=== PATIENT | female | born 1945 | race American Indian/Alaskan Native ===

== ENCOUNTER 2020-03-07 17:47 | Observation (INO) | payer OTHER ==
[2020-03-08 03:11] LABS: Basophils # (Auto) 0.2 K/mm3 (0.0-0.1); Basophils % (Auto) 2.5 % (0.0-1.8); Eosinophils % (Auto) 0.5 % (0.0-4.3); Hematocrit 21.3 % (30.3-42.9); Hemoglobin 6.6 gm/dl (10.1-14.3); Lymphocytes # (Auto) 0.6 K/mm3 (1.2-5.4); Lymphocytes % (Auto) 7.6 % (13.4-35.0); Mean Corpuscular HGB Conc 31 % (30-34); Monocytes # (Auto) 0.9 K/mm3 (0.0-0.8); Monocytes % (Auto) 12.1 % (0.0-7.3); Platelet Count 562 K/mm3 (140-440); Red Blood Count 3.18 M/mm3 (3.65-5.03); Red Cell Distribution Width 19.7 % (13.2-15.2)
[2020-03-08 03:14] LABS: Mean Corpuscular Volume 67 fl (79-97)
[2020-03-08 03:26] LABS: Alanine Aminotransferase 6 units/L (7-56); Albumin 3.3 g/dL (3.9-5); BUN/Creatinine Ratio 38; Blood Urea Nitrogen 30 mg/dL (7-17); Hemolysis Index 0
[2020-03-08 03:39] LABS: Bacteria,Urine 1+ /HPF (Negative); Bilirubin,Urine NEG (Negative); Blood,Urine NEG (Negative); Calcium Oxalate Crystals,Urine 3+; Color,Urine Yellow (Yellow); Mucus,Urine FEW /HPF
[2020-03-08] MEDS ORDERED: SODIUM CHLORIDE 0.9% 500 ML 500 ML IV ONE ×2 (04:46→06:27)
--- NOTE | 2020-03-08 06:12 | Cat Scan Report ---
CT chest, abdomen, and pelvis with contrast INDICATION : Severe anemia, weight loss abdominal pain anorexia. TECHNIQUE: 100 mL of intravenous contrast administered.. All CT scans at this location are performe d using CT dose reduction for ALARA by means of automated exposure control. COMPARISON: None FINDINGS: Chest: Heart and great vessels appear unremarkable. Clear lungs with no pathologic mediastinal adeno ava. No acute osseous abnormality identified. Abdomen/pelvis: Small hepatic cysts are present with trace perihepatic ascites. A couple other tiny hepatic lesions are present which are not clearly cysts on this exam. The gallbladder, spleen, pancre as, adrenals, kidneys, and proximal GI tract appear unremarkable. Urinary bladder is unremarkable with trace pelvic free fluid is a cystic mass centered over the lower uterine segment measuring approximately 7.7 cm in maximal dimension. No acute colonic abnormality. IMPRESSION: Cystic mass centered over the lower uterine segment. Recommend FORKLIFT WHEEL LOADER consult. A couple s mall low-attenuation lesions not clearly representing cysts are also noted which are worrisome for ne oplastic process. From an imaging standpoint, liver findings could be better evaluated with three-pha se CT liver and pelvic findings could be better evaluated with pelvic ultrasound. Signer Name: Casey Sommer MD Signed: 03/08/2020 6:07 AM Workstation Name: [id number]
--- NOTE | 2020-03-08 06:12 | Cat Scan Report ---
CT chest, abdomen, and pelvis with contrast INDICATION : Severe anemia, weight loss abdominal pain anorexia. TECHNIQUE: 100 mL of intravenous contrast administered.. All CT scans at this location are performe d using CT dose reduction for ALARA by means of automated exposure control. COMPARISON: None FINDINGS: Chest: Heart and great vessels appear unremarkable. Clear lungs with no pathologic mediastinal adeno ava. No acute osseous abnormality identified. Abdomen/pelvis: Small hepatic cysts are present with trace perihepatic ascites. A couple other tiny hepatic lesions are present which are not clearly cysts on this exam. The gallbladder, spleen, pancre as, adrenals, kidneys, and proximal GI tract appear unremarkable. Urinary bladder is unremarkable with trace pelvic free fluid is a cystic mass centered over the lower uterine segment measuring approximately 7.7 cm in maximal dimension. No acute colonic abnormality. IMPRESSION: Cystic mass centered over the lower uterine segment. Recommend HOMEBOUND TEACHER consult. A couple s mall low-attenuation lesions not clearly representing cysts are also noted which are worrisome for ne oplastic process. From an imaging standpoint, liver findings could be better evaluated with three-pha se CT liver and pelvic findings could be better evaluated with pelvic ultrasound. Signer Name: Casey Sommer MD Signed: 03/08/2020 6:07 AM Workstation Name: [id number]
[2020-03-08] MEDS ORDERED: PANTOPRAZOLE 40 MG INJ IV ONE (06:26)
--- NOTE | 2020-03-08 06:59 | Emergency Department Report ---
ED General Adult HPI - General Chief complaint: Recheck/Abnormal Lab/Rx Stated complaint: NOT EATING Time Seen by Provider: 03/08/20 06:22 Source: family Mode of arrival: Ambulatory Limitations: No Limitations - History of Present Illness Initial comments: This is a 74-year-old female who recently moved here from [place] with her family. They are originally from [facility]. She has not seen a doctor in many years. The family reports substantial weight loss and dyspnea on exertion. They associated that with her history of asthma. She uses a "pump" but no other prescription medicine. The patient has no active complaints at the time of my exam. She has no signs of active bleeding. -: unknown Improves with: none Worsens with: other Associated Symptoms: denies other symptoms (Dyspnea on exertion), shortness of breath, weakness - Related Data Allergies Allergy/AdvReac Type Severity Reaction Status Date / Time No Known Allergies Allergy Unverified 03/07/20 18:40 ED Review of Systems ROS: Stated complaint: NOT EATING Other details as noted in HPI Constitutional: denies: chills, fever Eyes: denies: eye pain, vision change ENT: denies: ear pain, throat pain Respiratory: shortness of breath, SOB with exertion. denies: cough, wheezing Cardiovascular: denies: chest pain, palpitations Endocrine: no symptoms reported, unexplained weight loss Gastrointestinal: denies: abdominal pain, nausea, diarrhea Genitourinary: denies: urgency, dysuria, discharge Musculoskeletal: denies: back pain, arthralgia Skin: denies: rash, lesions Neurological: denies: headache, weakness, paresthesias Psychiatric: denies: anxiety, depression Hematological/Lymphatic: denies: easy bleeding, easy bruising ED Past Medical Hx - Past Medical History Previous Medical History?: Yes Additional medical history: low iron - Surgical History Past Surgical History?: No ED Physical Exam - General Limitations: No Limitations General appearance: alert, in no apparent distress, cachectic - Head Head exam: Present: atraumatic, normocephalic - Eye Eye exam: Present: normal appearance. Absent: scleral icterus - ENT ENT exam: Present: mucous membranes moist - Neck Neck exam: Present: normal inspection - Respiratory Respiratory exam: Present: normal lung sounds bilaterally. Absent: respiratory distress - Cardiovascular Cardiovascular Exam: Present: regular rate, normal rhythm. Absent: systolic mu rmur, diastolic murmur, rubs, gallop - GI/Abdominal GI/Abdominal exam: Present: soft, normal bowel sounds. Absent: distended, tenderness, guarding, rebound - Extremities Exam Extremities exam: Present: normal inspection. Absent: calf tenderness - Back Exam Back exam: Present: normal inspection. Absent: CVA tenderness (R), CVA tenderness (L) - Neurological Exam Neurological exam: Present: alert, oriented X3 - Psychiatric Psychiatric exam: Present: normal affect, normal mood - Skin Skin exam: Present: warm, dry, intact, normal color. Absent: rash ED Course Vital Signs 03/07/20 03/07/20 03/08/20 18:40 18:41 02:06 Temperature 99.0 F 97.3 F L Pulse Rate 121 H 122 H 100 H Respiratory 18 19 Rate Blood Pressure 131/70 Blood Pressure 121/66 121/66 [Right] O2 Sat by Pulse 99 97 99 Oximetry 03/08/20 03/08/20 03/08/20 04:43 04:45 04:50 Temperature Pulse Rate 97 H 93 H Respiratory 24 16 Rate Blood Pressure 133/64 127/64 Blood Pressure [Right] O2 Sat by Pulse 98 Oximetry 03/08/20 03/08/20 03/08/20 05:00 05:15 05:43 Temperature Pulse Rate 93 H 93 H 87 Respiratory 22 27 H 15 Rate Blood Pressure 123/66 122/70 122/70 Blood Pressure [Right] O2 Sat by Pulse 100 97 Oximetry 03/08/20 03/08/20 03/08/20 05:45 06:00 06:15 Temperature Pulse Rate 86 83 81 Respiratory 22 18 20 Rate Blood Pressure 140/75 148/73 122/70 Blood Pressure [Right] O2 Sat by Pulse 97 96 Oximetry 03/08/20 03/08/20 03/08/20 07:00 07:16 07:30 Temperature Pulse Rate 85 81 81 Respiratory 19 20 18 Rate Blood Pressure 141/79 141/79 Blood Pressure [Right] O2 Sat by Pulse 96 94 Oximetry - Reevaluation(s) Reevaluation #1: Transfusion ordered. Discussed with hospitalist. Admit their service. 03/08/20 08:23 ED Medical Decision Making - Lab Data Result diagrams: 03/08/20 02:43 03/08/20 02:43 Laboratory Results - last 24 hr 03/08/20 03/08/20 03/08/20 02:43 02:43 Unknown WBC 7.5 RBC 3.18 L Hgb 6.6 L Hct 21.3 L MCV 67 L MCH 21 L MCHC 31 RDW 19.7 H Plt Count 562 H Lymph % (Auto) 7.6 L [place] % (Auto) 12.1 H Eos % (Auto) 0.5 Baso % (Auto) 2.5 H Lymph # (Auto) 0.6 L [place] # (Auto) 0.9 H Eos # (Auto) 0.0 Baso # (Auto) 0.2 H Seg Neutrophils % 77.3 H Seg Neutrophils # 5.8 Sodium 135 L Potassium 5.2 H Chloride 98.7 Carbon Dioxide 21 L Anion Gap 21 BUN 30 H Creatinine 0.8 Estimated GFR > 60 BUN/Creatinine Ratio 38 Glucose 92 Calcium 10.0 Total Bilirubin 0.50 AST 14 ALT 6 L Alkaline Phosphatase 114 Total Protein 7.2 Albumin 3.3 L Albumin/Globulin Ratio 0.8 Lipase 59 Urine Color Yellow Urine Turbidity Cloudy Urine pH 5.0 Ur Specific [place] 1.017 Urine Protein 30 mg/dl Urine Glucose (UA) Neg Urine Ketones Tr Urine Blood Neg Urine Nitrite Neg Urine Bilirubin Neg Urine Urobilinogen 4.0 Ur Leukocyte Esterase Mod Urine WBC (Auto) 6.0 Urine RBC (Auto) 6.0 U Epithel Cells (Auto) 1.0 Urine Bacteria (Auto) 1+ Calcium Oxalate Crystal 3+ Urine Mucus Few - Radiology Data Radiology results: report reviewed, image reviewed interpreted by me: 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 IMPRESSION: Cystic mass centered over the lower uterine segment. Recommend BUNDLE SHAKER consult. A couple small low-attenuation lesions not clearly representing cysts are also noted which are worrisome for neoplastic process. From an imaging standpoint, liver findings could be better evaluated with three- phase CT liver and pelvic findings could be better evaluated with pelvic ultrasound. Critical care attestation.: If time is entered above; I have spent that time in minutes in the direct care of this critically ill patient, excluding procedure time. ED Disposition Clinical Impression: Symptomatic anemia, Metastatic cancer to liver Disposition: OP ADMIT IP TO THIS HOSP Is pt being admited?: No Does the pt Need Aspirin: No Condition: Stable Referrals: PRIMARY CARE, [Primary Care Provider] - 3-5 Days Time of Disposition: 08:24
--- NOTE | 2020-03-08 09:11 | History and Physical Report ---
History of Present Illness Date of examination: 03/08/20 Date of admission: March 08, 2020 Chief complaint: Shortness of breath fatigue History of present illness: Patient 74-year-old recently moved from [place] via [facility]. Patient has not had primary care physician in quite some time is been years. Patient brought to ER by the family with a chief complaint of weight loss associated with shortness of breath, generalized malaise and dyspnea on minimal exertion. During history patient appears to be comfortable. No acute distress no concerns. Patient is a lert appropriate. Denies any bleeding any vaginal or rectal bleeding. Patient denies any sick contacts. Denies any abdominal pain denies chest pain only shortness of breath fatigue and occasional palpitation. No headache. Patient states she is not aware she has lost any weight but does notice a decrease in her appetite. Patient denies any pelvic pain denies any discharge denies any recent activity. Upon work-up in the ED patient found to be anemic at 6 and 21. Also with some dehydration as well. CT scan abdomen and pelvis were obtained and showed a cystic mass over the lower uterine segment. Malignancy versus fibroid. Also noted small cystlike lesions consistent with possible neoplastic process. Patient admitted for transfusion 2 units packed red blood cells HEALTH CARE MARKETING MANAGER work-up. Past History Past Medical History: No medical history Past Surgical History: No surgical history Social history: single, lives with family, full code Family history: no significant family history Medications and Allergies Allergies Allergy/AdvReac Type Severity Reaction Status Date / Time No Known Allergies Allergy Unverified 03/07/20 18:40 Review of Systems Constitutional: weight loss, fatigue, weakness, poor appetite, no weight gain, no fever, no chills, no sweats, no night sweats, no anorexia, no lethargy, no chronic headaches, no daytime sleepiness Ears, nose, mouth and throat: no ear pain, no tinnitis, no nose pain, no mouth pain, no pain front of neck Cardiovascular: shortness of breath, dyspnea on exertion, decreased exercise tolerance, no syncope, no lightheadedness, no high blood pressure, no leg edema Respiratory: shortness of breath, no cough with sputum, no excessive sputum, no hemoptysis, no wheezing, no pleurisy, no pain on inspiration Gastrointestinal: no vomiting, no diarrhea, no change in bowel habits, no hematochezia, no jaundice, no dyspepsia/bloating Musculoskeletal: no neck stiffness, no neck pain, no shooting arm pain, no arm numbness/tingling, no low back pain, no shooting leg pain, no leg numbness/tingling, no redness of joints, no hot joints, no morning stiffness, no muscle weakness, no muscle cramps, no atrophy, no fractures Neurological: no head injury, no parathesias, no numbness, no migraines, no tic, no loss of vision, no hearing difficulties Psychiatric: no memory loss, no sleep disturbances, no disorientation, no paranoia, no confusion Endocrine: no heat intolerance, no polydipsia, no polyuria, no thyroid mass, no recent glucocorticoid use Exam - Constitutional Vitals: Temp Pulse Resp BP Pulse Ox 97.3 F L 82 22 145/70 100 03/08/20 02:06 03/08/20 08:00 03/08/20 08:00 03/08/20 08:00 03/08/20 08:00 General appearance: Present: no acute distress, well-nourished - EENT Eyes: Present: PERRL ENT: hearing intact, clear oral mucosa, other (No jaundice only muddy sclera.) - Neck Neck: Present: supple, normal ROM - Respiratory Respiratory effort: normal, other (Pale conjunctiva) Respiratory: bilateral: CTA - Cardiovascular Heart Sounds: Present: S1 & S2. Absent: rub, click - Extremities Extremities: pulses symmetrical, No edema Peripheral Pulses: within normal limits - Abdominal General gastrointestinal: Present: soft, non-tender, non-distended, normal bowel sounds Female genitourinary: Present: normal - Integumentary Integumentary: Present: clear, warm, dry - Musculoskeletal Musculoskeletal: gait normal, strength equal bilaterally - Psychiatric Psychiatric: appropriate mood/affect, intact judgment & insight - Neurologic Neurologic: CNII-XII intact, moves all extremities Results - Labs CBC & Chem 7: 03/08/20 02:43 03/08/20 02:43 Labs: Laboratory Last Values WBC 7.5 K/mm3 (4.5-11.0) 03/08/20 02:43 RBC 3.18 M/mm3 (3.65-5.03) L 03/08/20 02:43 Hgb 6.6 gm/dl (10.1-14.3) L 03/08/20 02:43 Hct 21.3 % (30.3-42.9) L 03/08/20 02:43 MCV 67 fl (79-97) L 03/08/20 02:43 MCH 21 pg (28-32) L 03/08/20 02:43 MCHC 31 % (30-34) 03/08/20 02:43 RDW 19.7 % (13.2-15.2) H 03/08/20 02:43 Plt Count 562 K/mm3 (140-440) H 03/08/20 02:43 Lymph % (Auto) 7.6 % (13.4-35.0) L 03/08/20 02:43 Potter % (Auto) 12.1 % (0.0-7.3) H 03/08/20 02:43 Eos % (Auto) 0.5 % (0.0-4.3) 03/08/20 02:43 Baso % (Auto) 2.5 % (0.0-1.8) H 03/08/20 02:43 Lymph # (Auto) 0.6 K/mm3 (1.2-5.4) L 03/08/20 02:43 Potter # (Auto) 0.9 K/mm3 (0.0-0.8) H 03/08/20 02:43 Eos # (Auto) 0.0 K/mm3 (0.0-0.4) 03/08/20 02:43 Baso # (Auto) 0.2 K/mm3 (0.0-0.1) H 03/08/20 02:43 Seg Neutrophils % 77.3 % (40.0-70.0) H 03/08/20 02:43 Seg Neutrophils # 5.8 K/mm3 (1.8-7.7) 03/08/20 02:43 Sodium 135 mmol/L (137-145) L 03/08/20 02:43 Potassium 5.2 mmol/L (3.6-5.0) H 03/08/20 02:43 Chloride 98.7 mmol/L (98-107) 03/08/20 02:43 Carbon Dioxide 21 mmol/L (22-30) L 03/08/20 02:43 Anion Gap 21 mmol/L 03/08/20 02:43 BUN 30 mg/dL (7-17) H 03/08/20 02:43 Creatinine 0.8 mg/dL (0.6-1.2) 03/08/20 02:43 Estimated GFR > 60 ml/min 03/08/20 02:43 BUN/Creatinine Ratio 38 % 03/08/20 02:43 Glucose 92 mg/dL (65-100) 03/08/20 02:43 Calcium 10.0 mg/dL (8.4-10.2) 03/08/20 02:43 Total Bilirubin 0.50 mg/dL (0.1-1.2) 03/08/20 02:43 AST 14 units/L (5-40) 03/08/20 02:43 ALT 6 units/L (7-56) L 03/08/20 02:43 Alkaline Phosphatase 114 units/L (35-129) 03/08/20 02:43 Total Protein 7.2 g/dL (6.3-8.2) 03/08/20 02:43 Albumin 3.3 g/dL (3.9-5) L 03/08/20 02:43 Albumin/Globulin Ratio 0.8 % 03/08/20 02:43 Lipase 59 units/L (13-60) 03/08/20 02:43 Urine Color Yellow (Yellow) 03/08/20 Unknown Urine Turbidity Cloudy (Clear) 03/08/20 Unknown Urine pH 5.0 (5.0-7.0) 03/08/20 Unknown Ur Specific [place] 1.017 (1.003-1.030) 03/08/20 Unknown Urine Protein 30 mg/dl mg/dL (Negative) 03/08/20 Unknown Urine Glucose (UA) Neg mg/dL (Negative) 03/08/20 Unknown Urine Ketones Tr mg/dL (Negative) 03/08/20 Unknown Urine Blood Neg (Negative) 03/08/20 Unknown Urine Nitrite Neg (Negative) 03/08/20 Unknown Urine Bilirubin Neg (Negative) 03/08/20 Unknown Urine Urobilinogen 4.0 mg/dL (<2.0) 03/08/20 Unknown Ur Leukocyte Esterase Mod (Negative) 03/08/20 Unknown Urine WBC (Auto) 6.0 /HPF (0.0-6.0) 03/08/20 Unknown Urine RBC (Auto) 6.0 /HPF (0.0-6.0) 03/08/20 Unknown U Epithel Cells (Auto) 1.0 /HPF (0-13.0) 03/08/20 Unknown Urine Bacteria (Auto) 1+ /HPF (Negative) 03/08/20 Unknown Calcium Oxalate Crystal 3+ 03/08/20 Unknown Urine Mucus Few /HPF 03/08/20 Unknown - Imaging and Cardiology Imaging and Cardiology: Pelvic ultrasound Lopez/IV: IV Catheter Type [Left Forearm INT / Saline Lock ] Assessment and Plan Advance Directives: Yes VTE prophylaxis?: Chemical Plan of care discussed with patient/family: Yes - Patient Problems (1) Metastatic cancer to liver Current Visit: Yes Status: Acute Plan to address problem: Questionable metastatic cancer to the liver. Will need work-up. HEALTH CARE MARKETING MANAGER consult Obtain CEA Ca1 25 and CA 19.9 Pelvic ultrasound discharge with follow-up HEALTH CARE MARKETING MANAGER oncology and results. Currently hemodynamically stable not bleeding. Stable for discharge after trans fusion. Patient has not received blood yet. (2) Symptomatic anemia Current Visit: Yes Status: Acute Plan to address problem: Patient symptoms most likely associated with symptomatic anemia. The etiology of that anemia is yet to be determined malignancy versus fibroid. Pelvic ultrasound obtained to better visualize potential etiology. After patient is transfused can discharge follow-up with HEALTH CARE MARKETING MANAGER for results.
[2020-03-08] MEDS ORDERED: ACETAMINOPHEN 325 MG TAB PO PRN (09:30)
[2020-03-08] MEDS ORDERED: oxyCODONE /ACETAMINOPHEN 5-325MG TAB PO PRN (09:30)
[2020-03-08] MEDS ORDERED: ONDANSETRON 4 MG/2 ML INJ IV PRN (09:30)
[2020-03-08] MEDS ORDERED: MORPHINE 4 MG/1 ML INJ IV PRN (10:00)
[2020-03-08] MEDS ORDERED: SODIUM CHLORIDE 0.9% 500 ML 500 ML ONE (10:38)
--- NOTE | 2020-03-08 11:43 | Consultation ---
History of Present Illness Consult date: 03/08/20 History of present illness: This is a 74-year-old female who presents with failure to thrive and acute dyspnea. CT of the abdomen pelvis revealed a possible HAND THERAPIST malignancy. She is currently not bleeding with no obvious outward signs of uterine malignancy. CT scan reviewed, question malignancy versus fibroid. Patient currently has a hemoglobin around 6.6, with a plan for transfusion in ER OBS. This patient is stable from a HAND THERAPIST standpoint, I have recommended tumor markers and pelvic ultrasound and outpatient follow-up. Thank you for this consult Magdaleno Ennis MD Past History Past Medical History: hematologic disorders (anemia) Medications and Allergies Allergies Allergy/AdvReac Type Severity Reaction Status Date / Time No Known Allergies Allergy Unverified 03/07/20 18:40 Active Meds: Active Medications Acetaminophen (Acetaminophen 325 Mg Tab) 650 mg PO Q4H PRN PRN Reason: Pain MILD(1-3)/Fever >100.5/VELIZ Albuterol/Ipratropium (Ipratropium/Albuterol Sulfate 3 Ml Ampul.Neb) 1 ampul IH Q6HRT PRECIOUS Morphine Sulfate (Morphine 4 Mg/1 Ml Inj) 4 mg IV Q4H PRN PRN Reason: Pain , Severe (7-10) Ondansetron HCl (Ondansetron 4 Mg/2 Ml Inj) 4 mg IV Q8H PRN PRN Reason: Nausea And Vomiting Oxycodone/Acetaminophen (Oxycodone /Acetaminophen 5-325mg Tab) 1 tab PO Q6H PRN PRN Reason: Pain, Moderate (4-6) Sodium Chloride (Sodium Chloride 0.9% 10 Ml Flush Syringe) 10 ml IV BID PRECIOUS Sodium Chloride (Sodium Chloride 0.9% 10 Ml Flush Syringe) 10 ml IV PRN PRN PRN Reason: LINE FLUSH - Vital Signs Vital signs: Vital Signs Pulse Resp BP Pulse Ox 121 H 18 121/66 99 03/07/20 18:40 03/07/20 18:40 03/07/20 18:40 03/07/20 18:40 Temp Pulse Resp BP Pulse Ox 97.9 F 89 19 137/70 199 H 03/08/20 11:26 03/08/20 11:26 03/08/20 11:26 03/08/20 11:26 03/08/20 11:26 Results Result Diagrams: 03/08/20 02:43 03/08/20 02:43 Abnormal lab results 03/08/20 03/08/20 03/08/20 Range/Units 02:43 02:43 07:00 RBC 3.18 L (3.65-5.03) M/mm3 Hgb 6.6 L (10.1-14.3) gm/dl Hct 21.3 L (30.3-42.9) % MCV 67 L (79-97) fl MCH 21 L (28-32) pg RDW 19.7 H (13.2-15.2) % Plt Count 562 H (140-440) K/mm3 Lymph % (Auto) 7.6 L (13.4-35.0) % [place]rell % (Auto) 12.1 H (0.0-7.3) % Baso % (Auto) 2.5 H (0.0-1.8) % Lymph # (Auto) 0.6 L (1.2-5.4) K/mm3 [place]rell # (Auto) 0.9 H (0.0-0.8) K/mm3 Baso # (Auto) 0.2 H (0.0-0.1) K/mm3 Seg Neutrophils % 77.3 H (40.0-70.0) % Sodium 135 L (137-145) mmol/L Potassium 5.2 H (3.6-5.0) mmol/L Carbon Dioxide 21 L (22-30) mmol/L BUN 30 H (7-17) mg/dL ALT 6 L (7-56) units/L Albumin 3.3 L (3.9-5) g/dL Crossmatch See Detail All other labs normal. Assessment and Plan Failure to thrive, suspect neoplastic processvs incidental findings of fibroids on CT scan. obtain pelvic US Tumor Markers: CEA,CA 125, CA 19-9 The above were ordered in [facility] outpatient HAND THERAPIST follow up appropriate. Magdaleno Ennis MD
[2020-03-08] MEDS: IPRATROPIUM/ALBUTEROL SULFATE 3 ML AMPUL.NEB IH SCH (14:22)
--- NOTE | 2020-03-08 18:59 | Ultrasound Report ---
ULTRASOUND PELVIS INDICATION / CLINICAL INFORMATION: suspect BIOFUELS PLANT OPERATIONS ENGINEER malignancy. TECHNIQUE: Transabdominal and Transvaginal. Duplex Color Doppler used: Yes. COMPARISON: CT from 03/08/2020. FINDINGS: There is a large cystic mass with mural nodularity centered in the pelvis. This is favored to arise f rom the uterus. There is a 3 cm hypoechoic mass adjacent to this structure which is suspected to refl ect a uterine fibroid in the left uterine fundus. Both ovaries are obscured. There is minimal pelvic free fluid. IMPRESSION: Large cystic mass with mural nodularity centered in the pelvis, favored to arise from the uterus. Fin dings are highly concerning for neoplasm and further evaluation with MEDICAL RECORDS RECEPTIONIST consultation is recommend ed. Nonvisualization of either ovary. Signer Name: Bro Prakash MD Signed: 03/08/2020 6:54 PM Workstation Name: [id number]
--- NOTE | 2020-03-08 18:59 | Ultrasound Report ---
ULTRASOUND PELVIS INDICATION / CLINICAL INFORMATION: suspect COMMUNICATION AND OUTREACH MANAGER malignancy. TECHNIQUE: Transabdominal and Transvaginal. Duplex Color Doppler used: Yes. COMPARISON: CT from 03/08/2020. FINDINGS: There is a large cystic mass with mural nodularity centered in the pelvis. This is favored to arise f rom the uterus. There is a 3 cm hypoechoic mass adjacent to this structure which is suspected to refl ect a uterine fibroid in the left uterine fundus. Both ovaries are obscured. There is minimal pelvic free fluid. IMPRESSION: Large cystic mass with mural nodularity centered in the pelvis, favored to arise from the uterus. Fin dings are highly concerning for neoplasm and further evaluation with CHAIRLIFT OPERATOR consultation is recommend ed. Nonvisualization of either ovary. Signer Name: Bro Prakash MD Signed: 03/08/2020 6:54 PM Workstation Name: [id number]
[2020-03-09] MEDS: IPRATROPIUM/ALBUTEROL SULFATE 3 ML AMPUL.NEB IH SCH ×4 (00:24→07:56)
[2020-03-09 04:39] VITALS: BP 132/74
[2020-03-09 06:31] LABS: Hematocrit 32.6 % (30.3-42.9); Hemoglobin 10.2 gm/dl (10.1-14.3); Mean Corpuscular HGB Conc 31 % (30-34); Mean Corpuscular Volume 76 fl (79-97); Platelet Count 507 K/mm3 (140-440); Red Blood Count 4.29 M/mm3 (3.65-5.03)
[2020-03-09 06:33] LABS: Basophils % (Auto) 0.3 % (0.0-1.8); Eosinophils % (Auto) 0.5 % (0.0-4.3); Lymphocytes % (Auto) 6.5 % (13.4-35.0); Monocytes % (Auto) 9.3 % (0.0-7.3); Red Cell Distribution Width 25.7 % (13.2-15.2)
[2020-03-09 06:34] LABS: Lymphocytes # (Auto) 0.5 K/mm3 (1.2-5.4); Monocytes # (Auto) 0.8 K/mm3 (0.0-0.8)
[2020-03-09 06:46] LABS: Blood Urea Nitrogen 21 mg/dL (7-17); Calcium 9.6 mg/dL (8.4-10.2); Hemolysis Index 9
[2020-03-09 06:49] LABS: BUN/Creatinine Ratio 30
--- NOTE | 2020-03-09 08:23 | Discharge Summary ---
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 This is favored to arise from the uterus. There is a 3 cm hypoechoic mass adjacent to this structure which is suspected to reflect a uterine fibroid in the left uterine fundus. Both ovaries are obscured. There is minimal pelvic free fluid. Findings are highly concerning for neoplasm and further evaluation with PHOTOVOLTAIC TESTING TECHNICIAN consultation is recommended. Nonvisualization of either ovary. 03/08 CT abd/pelvis w/ contrast: Heart and great vessels appear unremarkable. Clear lungs with no pathologic mediastinal adenopathy. No acute osseous abnormality identified. Small hepatic cysts are present with trace perihepatic ascites. A couple other tiny hepatic lesions are present which are not clearly cysts on this exam. The gallbladder, spleen, pancreas, adrenals, kidneys, and proximal GI tract appear unremarkable. Urinary bladder is unremarkable with trace pelvic free fluid is a cystic mass centered over the lower uterine segment measuring approximately 7.7 cm in maximal dimension. No acute colonic abnorma lity. IMPRESSION: Cystic mass centered over the lower uterine segment. Recommend PHOTOVOLTAIC TESTING TECHNICIAN consult. A couple small low-attenuation lesions not clearly representing cysts are also noted which are worrisome for neoplastic process. From an imaging standpoint, liver findings could be better evaluated with three-phase CT liver and pelvic findings could be better evaluated with pelvic ultrasound. 03/08 CT chest w/ contrast: Heart and great vessels appear unremarkable. Clear lungs with no pathologic mediastinal adenopathy. No acute osseous abnormality identified. Small hepatic cysts are present with trace perihepatic ascites. A couple other tiny hepatic lesions are present which are not clearly cysts on this exam. The gallbladder, spleen, pancreas, adrenals, kidneys, and proximal GI tract appear unremarkable. Urinary bladder is unremarkable with trace pelvic free fluid is a cystic mass centered over the lower uterine segment measuring approximately 7.7 cm in maximal dimension. No acute colonic abnormality. IMPRESSION: Cystic mass centered over the lower uterine segment. Recommend PHOTOVOLTAIC TESTING TECHNICIAN consult. A couple small low-attenuation lesions not clearly representing cysts are also noted which are worrisome for neoplastic process. From an imaging standpoint, liver findings could be better evaluated with three-phase CT liver and pelvic findings could be better evaluated with pelvic ultrasound. 03/08 pelvis ultrasound: There is a large cystic mass with mural nodularity centered in the pelvis. This is favored to arise from the uterus. There is a 3 cm hypoechoic mass adjacent to this structure which is suspected to reflect a uterine fibroid in the left uterine fundus. Both ovaries are obscured. There is minimal pelvic free fluid. IMPRESSION: Large cystic mass with mural nodularity centered in the pelvis, favored to arise from the uterus. Findings are highly concerning for neoplasm and further evaluation with PHOTOVOLTAIC TESTING TECHNICIAN consultation is recommended. Hospital course: Patient 74-year-old recently moved from [place] via [facility] who had not had a primary care physician in years. Patient brought to ER by the family with a chief complaint of weight loss associated with shortness of breath, generalized malaise and dyspnea on minimal exertion. She denies any bleeding any vaginal or rectal bleeding, sick contacts, abdominal pain and chest pain but complains of only shortness of breath fatigue and occasional palpitation. Patient states she is not aware she has lost any weight but does notice a decrease in her appetite. Patient denies any pelvic pain denies any discharge denies any recent activity. Upon work-up in the ED patient found to be anemic with H/H 6/21, hyperkalemia 5.2, thrombocytosis at 592 and slightly hyponatremic at 135 along with some dehydration. CT scan abdomen and pelvis were obtained and showed a cystic mass over the lower uterine segment. Malignancy versus fibroid. Also noted small cystlike lesions consistent with possible neoplastic process. Patient admitted for transfusion 2 units packed red blood cells [facility] work-up. After her transfusion her h/h improved to 10.2/32.6, hyperkalemia and hypernatremia resolved. There has been improvement to her thrombocytosis and dehydration. Patient will need to follow-up with her primary care physician and gynecology within 1 to 2 weeks of discharge. Patient will also need to follow- up with gynecology oncology. (1) Metastatic cancer to liver Current Visit: Yes Status: Acute Plan to address problem: Questionable metastatic cancer to the liver. Will need work-up. [facility] consult CEA Ca1 25 and CA 19.9 are pending Pelvic ultrasound discharge with follow-up [facility] oncology and results. Currently hemodynamically stable not bleeding. Stable for discharge after transfusion. Patient has not received blood yet. (2) Symptomatic anemia Current Visit: Yes Status: Resolved Plan to address problem: Patient symptoms most likely associated with symptomatic anemia. The etiology of that anemia is yet to be determined malignancy versus fibroid. Pelvic ultrasound obtained to better visualize potential etiology. After patient is transfused can discharge follow-up with [facility] for results. Disposition: DC-01 TO HOME OR SELFCARE Time spent for discharge: 35 Core Measure Documentation - Palliative Care Palliative Care/ Comfort Measures: Not Applicable - Core Measures Any of the following diagnoses?: none Exam - Constitutional Vitals: Temp Pulse Resp BP Pulse Ox 98.4 F 92 H 18 132/74 98 03/09/20 04:37 03/09/20 04:37 03/09/20 04:37 03/09/20 04:37 03/09/20 04:37 General appearance: Present: no acute distress, cachectic - EENT Eyes: Present: PERRL, EOM intact ENT: hearing intact, poor dentition - Neck Neck: Present: normal ROM - Respiratory Respiratory effort: normal Respiratory: bilateral: CTA - Cardiovascular Rhythm: regular Heart Sounds: Present: S1 & S2. Absent: systolic murmur, diastolic murmur - Extremities Extremities: no ischemia, pulses intact, pulses symmetrical, No edema, normal temperature, normal color, Full ROM Peripheral Pulses: within normal limits - Abdominal General gastrointestinal: Present: soft, non-tender, non-distended - Integumentary Integumentary: Present: warm, dry - Musculoskeletal Musculoskeletal: strength equal bilaterally - Psychiatric Psychiatric: appropriate mood/affect, cooperative - Neurologic Neurologic: CNII-XII intact, no focal deficits, moves all extremities - Allied Health Allied health notes reviewed: nursing Plan Activity: advance as tolerated Diet: regular Special Instructions: record daily weights Additional Instructions: Present to nearest emergency department contact primary care physician if you experience worsening symptoms. You will need to follow- up with gynecology and oncology gynecology within 1 to 2 weeks of discharge. 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
== END 2020-03-09 13:25 | disposition home or self-care (01) ==
LOC: ED 17:47 → 3A 03-08 08:25
PROVIDERS: ADMIT Internal Medicine; ATTEND Internal Medicine
DX: C78.7 Secondary malignant neoplasm of liver and intrahepatic bile duct (principal); D64.9 Anemia, unspecified; R62.7 Adult failure to thrive; R97.0 Elevated carcinoembryonic antigen [CEA]; R97.1 Elevated cancer antigen 125 [CA 125]; Z68.1 Body mass index [BMI] 19.9 or less, adult; Z79.899 Other long term (current) drug therapy
CPT/HCPCS: 36415; 36430; 71260; 74177; 76830; 76856; 80048; 80053; 81001; 82378; 83690; 85025; 86301; 86304; 86850; 86900; 86901; 86920; 94640; 96361; 96374; 99285; C9113; G0378; J7040; P9016; Q9967